=== PATIENT | male | born 1940 | race Caucasian/White ===

== ENCOUNTER → 2018-01-26 06:26 | Outpatient (CLI) | payer MEDICARE, SELFPAY ==
--- NOTE | 2018-01-26 09:09 | STRESSREP ---
Stress Test Report Exercise myocardial perfusion stress test. 77-year-old man with a history of chest pain. On no medications. Stress protocol: Resting EKG demonstrates sinus rhythm with rate of 60 bpm normal intervals and noted resting blood pressure is 110/66 mmHg. Patient exercised according to regular Barry protocol for total duration of 9 minutes. Patient completed stage III of the Barry protocol. The maximum heart rate attained was 123 bpm which was 84% of maximum predicted heart rate the maximum workload attained was 10.1 metabolic equivalents. At rest there were no ST or T-wave changes noted suggest ischemia at peak exercise upsloping ST changes only were noted with no meet the criteria for ischemia. The resting blood pressure was 110/66 mmHg with a peak blood pressure of 140/68 mmHg rate pressure product was 17,200. No chest pain was noted and no arrhythmias were present. Myocardial perfusion protocol: 10.8 mCi of technetium 99m sestamibi was injected at rest. The patient exercised according to regular Barry protocol for 9 minutes attaining 10.1 metabolic equivalents and at peak exercise 33.3 mCi of technetium 99m sestamibi was injected stress images were obtained stress and rest images were reconstructed and compared in the short axis vertical long and horizontal long axis. Gated images were also obtained. Perfusion SPECT analysis: Review of the stress images demonstrate normal uptake of tracer noted in all areas of the myocardium. The resting images similarly demonstrate normal uptake of tracer noted in all areas of the myocardium; no areas of reversibility are noted suggest ischemia and no previous infarct is noted. There is mild GI attenuation artifact noted involving the inferior wall. Gated SPECT analysis: The gated ejection fraction is 81% with no wall motion abnormalities noted. Conclusion: Normal exercise myocardial perfusion stress test at a high workload. Preserved ejection fraction.
== END ==
PROVIDERS: Family Provider Family Medicine; PCP Family Medicine; Visit Provider Family Medicine
DX: R07.89 Other chest pain (principal)
CPT/HCPCS: 78452; 93017; A9500; A4216

== ENCOUNTER → 2018-02-04 06:39 | Outpatient (CLI) | payer MEDICARE, SELFPAY ==
--- NOTE | 2018-02-04 06:41 | CT_ITS ---
STUDY: CT ABDOMEN AND PELVIS WITH CONTRAST REASON FOR EXAM: Male, 77 years old. Recent diagnosis of a colonic tubular adenomatous polyp. RADIATION DOSAGE (If Supplied By Facility): CTDIvol = ( 11.54 ) mGy, DLP = ( 529.98 ) mGycm TECHNIQUE: Transaxial images were obtained from the dome of the diaphragm to the symphysis pubis with oral contrast. 100 ml of Isovue 300 contrast was administered. Sagittal and coronal images were reconstructed. Individualized dose optimization techniques were used for this CT. COMPARISON: None. FINDINGS: The visualized lung bases are unremarkable. The visualized portions of the heart are within normal limits. There are several well-defined small hypodensities scattered throughout the liver suggestive of hepatic cysts. The largest is in the peripheral inferior aspect of the right lobe of liver measuring 2.1 cm x 1.8 cm. There are multiple small gallstones. There are multiple benign calcified granulomata of the spleen. Normal pancreas. Normal bilateral adrenal glands. Normal right kidney. Normal left kidney. Moderate sized hiatal hernia. Normal small intestine. There is a 3.2 cm x 3.9 cm x 9.8 cm lobulated fluid-filled structure in the cecum. This may represent the abnormal finding on colonoscopy. Clinical correlation is recommended. Moderate amount of fecal material is seen throughout the colon. Scattered sigmoid diverticula. The appendix is visualized and appears normal. There is diffuse atherosclerotic calcification of the abdominal aorta and the major visceral branches, without a demonstrated aneurysm. Normal inferior vena cava. Normal retroperitoneum. Normal urinary bladder. There is enlargement of the prostate gland. It measures 4.5 cm x 5.2 centimeters. It is of homogeneous density. This causes indentation of the bladder base. Central prostatic calcifications are seen. There is a right-sided inguinal hernia containing adipose tissue. Normal osseous structures. CT/Abdomen/Pelvis WITH Contrast IMPRESSION: Large fluid-filled structure within the cecum as described. Multiple small hepatic cysts. Electronically Signed: Anatoliy Laureano MD at 10:09 EDT Tel [phone], Service support ,
[2018-02-04 07:01] LABS: CREATININE FINGERSTICK 1.4 mg/dL (0.70-1.30)
== END ==
PROVIDERS: Family Provider Family Medicine; PCP Family Medicine; Visit Provider Family Medicine
DX: D12.6 Benign neoplasm of colon, unspecified (principal); K76.89 Other specified diseases of liver
CPT/HCPCS: 74177; Q9967

== ENCOUNTER → 2018-02-17 08:46 | Outpatient (CLI) | payer MEDICARE, SELFPAY ==
[2018-02-17 09:20] VITALS: BP 115/60; PULSE 63; RESP 14; TEMP 36.4; O2SAT 98; BMI 22.5
[2018-02-17 09:30] LABS: International Normalized Ratio 1.1; Partial Thromboplast Time 38.6 Seconds (24.1-36.2); Prothrombin Time (Protime)PT. 14.5 SECONDS (11.7-14.9)
[2018-02-17 09:31] LABS: Platelet Count 186 K/mm3 (150-450)
== END ==
PROVIDERS: Family Provider Family Medicine; PCP Family Medicine; Visit Provider Internal Medicine Gastroenterology
DX: K63.89 Other specified diseases of intestine (principal)
CPT/HCPCS: 36415; 85049; 85610; 85730; J7040; A4216

== ENCOUNTER → 2018-07-15 09:14 | Outpatient (CLI) | payer MEDICARE, SELFPAY ==
[2018-07-15 10:03] LABS: Hematocrit 39.3 % (40-54); Hemoglobin 13.7 g/dl (13.0-16.5); Mean Corp Hgb Conc 34.9 g/gl (32-36); Mean Corpuscular Hgb 30.2 pg (27.0-32.0); Mean Corpuscular Volume 86.6 fL (80-94); Mean Platelet Vol. 9.2 fl (6.2-12.0); Platelet Count 191 K/mm3 (150-450); RBC Distribution Width CV 13.5 % (11.6-14.6); RBC Distribution Width SD 41.4 fl (35.1-43.9); Red Blood Count 4.54 M/mm3 (4.6-6.2); Scan Indicated on CBC? Y/N NO; White Blood Count 5.7 K/mm3 (4.4-11.0)
[2018-07-15 10:27] LABS: Anion Gap 8 (5-15); BUN 21 mg/dL (7-18); BUN/Creat Ratio 19.8 RATIO (10-20); Calcium,Total 8.7 mg/dL (8.5-10.1); Chloride 106 mmol/L (98-107); Cholesterol 197 mg/dL (200); Creatinine, Serum 1.06 mg/dL (0.70-1.30); EST Glomerular Filtration Rate 72 mL/min (>60); Est Glom Filt Rate - Afr Amer 87 mL/min (>60); Glucose 91 mg/dL (74-106); High Density Lipoprotein 31 mg/dL; PSA,Total - Annual Screen 2.95 ng/mL (0.00-4.00); Potassium 4.1 mmol/L (3.5-5.1); Sodium Level 140 mmol/L (136-145); Triglycerides 182 mg/dL; Very Low Density Lipoprotein 36 mg/dL (5-40)
== END ==
PROVIDERS: Family Provider Family Medicine; PCP Family Medicine; Referring Provider Family Medicine; Visit Provider Family Medicine
DX: E78.00 Pure hypercholesterolemia, unspecified (principal); D64.9 Anemia, unspecified; Z12.5 Encounter for screening for malignant neoplasm of prostate
CPT/HCPCS: 36415; 80048; 80061; 84153; 85027; G0103

== ENCOUNTER → 2020-03-07 09:46 | Outpatient (CLI) | payer MEDICARE, SELFPAY ==
[2018-09-10 08:43] VITALS: BMI 22.5
--- NOTE | 2020-03-07 09:51 | RAD_ITS ---
STUDY: X-RAY CHEST REASON FOR EXAM: Male, 79 years old. Chest pain/pressure TECHNIQUE: 2 PA and lateral views of the chest. COMPARISON: None. FINDINGS: The lungs are clear and expanded. There is no demonstrated pleural abnormality. Normal size heart. Normal mediastinum and kelli. Normal visualized pulmonary arteries. Normal visualized aortic arch and descending thoracic aorta. There are diffuse degenerative changes of the visualized thoracic spine. Normal visualized ribs, clavicles, and shoulders. There is no demonstrated abnormality of the visualized soft tissue structures of the upper abdomen. RAD/Chest PA and Lateral IMPRESSION: No acute pulmonary process Electronically Signed: David Garcia MD at 11:46 EDT , Service support ,
== END ==
PROVIDERS: PCP Internal Medicine; Referring Provider Internal Medicine; Visit Provider Internal Medicine
DX: R07.9 Chest pain, unspecified (principal)
CPT/HCPCS: 71046

== ENCOUNTER → 2020-08-08 08:35 | Outpatient (CLI) | payer MEDICARE, SELFPAY ==
[2018-09-10 08:43] VITALS: BMI 22.5
--- NOTE | 2020-08-08 08:54 | US_ITS ---
STUDY: Soft tissue neck ULTRASOUND REASON FOR EXAM: Male, 79 years old. RIGHT NECK LUMP ENLARGED LYMPH NODE TECHNIQUE: Ultrasound evaluation of the soft tissue neck was performed with real-time and static oejda-scale imaging. COMPARISON: None. FINDINGS: Multiple longitudinal and transverse ultrasound images of the neck demonstrates some small normal-sized lymph nodes. US/Head/Neck Soft Tissue IMPRESSION: Normal ultrasound examination of the neck. Electronically Signed: Cyrus Dinh MD at 8:25 EDT Tel , Service support ,
== END ==
PROVIDERS: PCP Internal Medicine; Referring Provider Internal Medicine; Visit Provider Internal Medicine
DX: R22.1 Localized swelling, mass and lump, neck (principal)
CPT/HCPCS: 76536

== ENCOUNTER → 2020-11-07 13:40 | Outpatient (CLI) | payer MEDICARE, SELFPAY ==
[2018-09-10 08:43] VITALS: BMI 22.5
--- NOTE | 2020-11-07 13:46 | CT_ITS ---
STUDY: CT BRAIN WITH AND WITHOUT CONTRAST REASON FOR EXAM: Male, 80 years old. HEADACHE RADIATION DOSAGE (If Supplied By Facility): CTDIvol = ( 60.81 ) mGy, DLP = ( 2035.57 ) mGycm TECHNIQUE: Transaxial CT imaging of the brain was performed pre and post contrast administration. The examination was performed with intravenous administration of IV 50mL Isovue-370. Individualized dose optimization techniques were used for this CT. COMPARISON: Comparison is made with prior study 06/04/2016. FINDINGS: Normal soft tissue structures. Normal calvarium. There is mild cerebral atrophy with widening of the extra-axial spaces and ventricular dilatation. There are areas of decreased attenuation within the white matter tracts of the supratentorial brain, consistent with microvascular disease changes. There are small punctate calcifications of the basal ganglia which are seen in the aging brain as a normal variant. Normal brainstem. Normal cerebellum. There is no intracranial hemorrhage. There are no findings of an acute ischemic infarction. Atherosclerotic calcification of the cavernous portions of the internal carotid arteries bilaterally. Normal visualized paranasal sinuses. CT/Brain/Head W/WO Contrast IMPRESSION: Chronic involutional changes of the brain. Electronically Signed: Anatoliy Laureano MD at 14:47 EST , Service support ,
[2020-11-07 14:11] LABS: CREATININE FINGERSTICK 1.2 mg/dL (0.70-1.30)
== END ==
LOC: CT 13:45
PROVIDERS: PCP Internal Medicine; Referring Provider Internal Medicine; Visit Provider Internal Medicine
DX: R51.9 Headache, unspecified (principal); J32.9 Chronic sinusitis, unspecified
CPT/HCPCS: 70470; Q9967

== ENCOUNTER → 2021-08-05 12:45 | Outpatient (CLI) | payer MEDICARE, SELFPAY ==
--- NOTE | 2021-08-05 12:48 | CDU_ITS ---
Reason For Study: CAROTID STENOSIS Rt. Velocities/BP Lt. Velocities/BP Prox CCA 77.3/21.3 cm/sec. Prox CCA 127.1/30.3 cm/sec. Mid CCA 103.4/22.6 cm/sec. Mid CCA 108.9/28.5 cm/sec. Dist CCA 147.2/26.7 cm/sec. Dist CCA 97.9/26.7 cm/sec. Prox ICA 97.3/17.7 cm/sec. Prox ICA 81.5/23.0 cm/sec. Mid ICA 71.2/23.0 cm/sec. Mid ICA 70.5/21.2 cm/sec. Dist ICA 62.1/23.0 cm/sec. Dist ICA 68.7/23.0 cm/sec. Rt. ICA/CCA = .68. Lt. ICA/CCA = .7. Prox ECA 104.7/13.4 cm/sec. Prox ECA 97.9/19.4 cm/sec. Rt. Vert. 41.2/11.2 cm/sec. Lt. Vert. 35.8/12.1 cm/sec. Right Extracranial There is homogeneous, smooth atherosclerotic plaque noted in the right common carotid artery. The atherosclerotic plaque causes acoustic shadowing. There is heterogeneous, irregular atherosclerotic plaque noted in the right internal carotid artery. There is homogeneous, smooth atherosclerotic plaque noted in the right external carotid artery. Antegrade flow is noted in the right vertebral artery. There is heterogeneous, irregular atherosclerotic plaque noted in the right bulb. Left Extracranial There is homogeneous, smooth atherosclerotic plaque noted in the left common carotid artery. There is heterogeneous, irregular atherosclerotic plaque noted in the left internal carotid artery. There is no significant atherosclerotic plaque noted in the left external carotid artery. Antegrade flow is noted in the left vertebral artery. There is heterogeneous, irregular atherosclerotic plaque noted in the left bulb. Procedure Carotid Duplex 18083. Exam performed in department. VL/Carotid Duplex Ultrasound Interpretation Summary Mild (<50%) stenosis right extracranial internal carotid. Mild (<50%) stenosis left extracranial internal carotid. Flow within the vertebral arteries is antegrade bilaterally. Heterogeneous, irregular, atherosclerotic plaque is noted in the carotid bulbs bilaterally, wh ich does not appear to be hemodynamically significant. However, they are calcified, cause acoustic shadowing, and appear to occupy significant luminal volume. Serial monitoring and clinical correlatio n are advised. Ordering Physician: Yahaira Nicholas Referring Physician: Yahaira Nicholas Performed By: Jeanie Sinclair, YECENIA, RVT
== END ==
PROVIDERS: PCP Internal Medicine; Referring Provider Internal Medicine; Visit Provider Internal Medicine
DX: I65.23 Occlusion and stenosis of bilateral carotid arteries (principal)
CPT/HCPCS: 93880

== ENCOUNTER → 2022-12-15 | Outpatient (CLI) | payer MEDICARE, SELFPAY ==
--- NOTE | 2022-12-15 08:52 | STRESSREP_ITS ---
Stress Test Report Date: 12-15-2022 Procedure: Exercise tolerance test/imaging study Indications: Chest pain, cardiac conduction system disorder, peripheral arterial occlusive disease Consent: Per the patient Procedure: The patient exercised on a Barry protocol for 8 minutes completing Stage II and 2 minutes of Stage III achieving a peak heart rate of 125 bpm (89% predicted maximal heart rate) with resting blood pressure of 92/60 mmHg and a peak blood pressure 140/66 mmHg and a peak MET capacity of 10 METs. The baseline ECG demonstrated sinus bradycardia; first-degree AV block. The peak exercise ECG demonstrated significant somatic/motion artifact with no obvious ECG changes. There were no cardiac dysrhythmias pretest, during exercise, or recovery. The functional capacity was considered good. There was no complaint of chest discomfort during exercise or recovery. The examination was discontinued secondary to dyspnea and leg fatigue. Impression: 1. Technically adequate (percent predicted maximal heart rate greater than 85%) exercise tolerance test 2. Peak exercise ECG with significant somatic/motion artifact with no obvious ECG changes 3. There were no cardiac dysrhythmias pretest, during exercise, or recovery 4. Nuclear images pending Myocardial perfusion imaging study: Technique: The patient was injected with 10.1 mCi of technetium 99m Cardiolite and subsequently rest SPECT Cardiolite nuclear imaging was obtained in the horizontal long, vertical long, and short axis views. The patient exercised on a Barry protocol for 8 minutes completing Stage II and 2 minutes of Stage III achieving a peak heart rate of 125 bpm (89% predicted maximal heart rate) with resting blood pressure of 92/60 mmHg and a peak blood pressure 140/66 mmHg and a peak MET capacity of 10 METs. The patient was injected with 34.0 mCi of technetium 99m Cardiolite and subsequently stress SPECT Cardiolite nuclear imaging was obtained in the horizontal long, vertical long, and short axis views. A gated Cardiolite study at peak stress was obtained. Interpretation: Rest and stress SPECT Cardiolite nuclear imaging status post realignment, norm alization, and attenuation correction, demonstrates relative uniform tracer uptake and myocardial perfusion appearing within normal limits. There is end systolic thickening and brightening. The gated Cardiolite study demonstrates myocardial thickening and inward wall motion. The reported LVEF is 79%. Impression: 1. Rest and stress SPECT Cardiolite nuclear imaging demonstrate relative uniform tracer uptake and myocardial perfusion appearing within normal limits. 2. The gated Cardiolite study reports an LVEF of 79%. This note was generated with Swidj[employer] software. It may contain incorrect words, spelling, and punctuation that were not noted in checking the note before signing.
== END | disposition home or self-care (01) ==
PROVIDERS: PCP Internal Medicine; Referring Provider Internal Medicine; Visit Provider Internal Medicine
DX: R07.89 Other chest pain (principal)
CPT/HCPCS: 78452; 93017; A9500

== ENCOUNTER → 2022-12-17 | Outpatient (CLI) | payer MEDICARE, SELFPAY ==
--- NOTE | 2022-12-17 13:12 | CT_ITS ---
INDICATION: HIGH CHOL. EXAMINATION: CT CHEST WITHOUT CONTRAST - CT Chest W/O Contrast Injection. Cardiac over read examination. TECHNIQUE: Helically acquired images were obtained of the chest. A radiation dose optimization technique was used for this scan. IV Contrast dosage and agent: None. COMPARISON: None. FINDINGS: LUNGS, PLEURA AND LARGE AIRWAYS: Calcified granulomas in the posterior aspect of the left upper lobe. No pleural effusion or thickening. No pneumothorax. THYROID: No thyroid lesions. HEART AND PERICARDIUM: Heart size is normal. No pericardial effusion. CORONARY ARTERIES: Coronary artery calcification is seen. VESSELS: Thoracic aorta is not dilated. MEDIASTINUM AND ISAIAS: Calcified left hilar lymph nodes. Esophagus is unremarkable. No hiatal hernia. UPPER ABDOMEN: Moderate sized hiatal hernia. There is a 1.7 cm x 1.4 cm cyst in the upper medial aspect of the right lobe of the liver. BONES: Disc space narrowing and spondylosis in the thoracic spine. CT/Limited Chest CT Cardiac Only IMPRESSION: Calcified granulomas in the posterior aspect of the left upper lobe with calcified left hilar lymph nodes. Small cyst in the upper medial aspect of the right lobe of the liver. Electronically Signed: Anatoliy Laureano MD at 15:38 EST ,
[2022-12-17 13:27] VITALS: BP 128/68; PULSE 45; RESP 16; TEMP 36.2; O2SAT 100; BMI 22.8
--- NOTE | 2022-12-21 07:58 | CA.SCORE ---
Calcium Scoring Coronary Calcium Scoring: High-resolution Computed Tomographic imaging of the chest was performed on [12/17/22 ], with particular attention paid to the coronary arteries. Images from the examination were analyzed for the presence and extent of coronary artery calcification , using coronary calcium quantification software. The patient tolerated the procedure well and there were no complications. The results of the coronary calcification analysis are provided below. Findings Coronary Artery Left Main (LM): 10 Left Anterior Descending (LAD): 23 Left Circumflex (LCX): 0 Right Coronary Artery (RCA): 0 Total Agatston Score: 33 Percentile Ranking: less than 10% Calcium Scoring Interpretation: Different methods to categorize the overall amount of coronary plaque. Overall amount CAC SIS Visual of coronary plaque P1 Mild -100 <2 1-2 vessels with mild amount of plaque P2 Moderate 101-300 3-4 1-2 vessels with moderate amount, 3 vessels with mild amount of plaque P3 Severe 301-999 5-7 3 vessels with moderate amount, 1 vessel with severe amount of plaque P4 Extensive >1000 >8 2-3 vessels with severe amount of plaque Calcium Score: Mild: 1-2 vessels w/mild amount of plaque
== END | disposition home or self-care (01) ==
PROVIDERS: PCP Internal Medicine; Referring Provider Internal Medicine; Visit Provider Internal Medicine
DX: R07.9 Chest pain, unspecified (principal); E78.00 Pure hypercholesterolemia, unspecified
CPT/HCPCS: 75571; 76380

== ENCOUNTER → 2023-07-12 | Outpatient (CLI) | payer MEDICARE, SELFPAY ==
--- NOTE | 2023-07-12 07:50 | CDU_ITS ---
Reason For Study: carotid stenosis Rt. Velocities/BP Lt. Velocities/BP Prox CCA 103.5/27.4 cm/sec. Prox CCA 98.6/24.9 cm/sec. Mid CCA 115.8/33.5 cm/sec. Mid CCA 120.7/27.4 cm/sec. Dist CCA 85.1/18.8 cm/sec. Dist CCA 81.4/22.5 cm/sec. Prox ICA 83.9/17.6 cm/sec. Prox ICA 63.0/18.8 cm/sec. Mid ICA 59.3/13.9 cm/sec. Mid ICA 69.1/21.2 cm/sec. Dist ICA 85.1/27.4 cm/sec. Dist ICA 64.2/20.0 cm/sec. Rt. ICA/CCA = .7. Lt. ICA/CCA = .6. Prox ECA 74.0/10.2 cm/sec. Prox ECA 77.7/12.6 cm/sec. Rt. Vert. 49.5/13.9 cm/sec. Lt. Vert. 48.3/10.2 cm/sec. Right Extracranial There is intimal thickening but no significant atherosclerotic plaque noted in the right common carotid artery. There is heterogeneous, irregular atherosclerotic plaque noted in the right internal carotid artery. There is intimal thickening but no significant atherosclerotic plaque noted in the right external carotid artery. Antegrade flow is noted in the right vertebral artery. Left Extracranial There is intimal thickening but no significant atherosclerotic plaque noted in the left common carotid artery. There is heterogeneous, irregular atherosclerotic plaque noted in the left internal carotid artery. There is intimal thickening but no significant atherosclerotic plaque noted in the left external carotid artery. Antegrade flow is noted in the left vertebral artery. Procedure Carotid Duplex 31729. This is a Carotid Duplex examination using B-mode, color flow and specral Doppler. The exam was diagnostic. Exam performed in department. VL/Carotid Duplex Ultrasound Interpretation Summary Mild (<50%) stenosis right extracranial internal carotid. Mild (<50%) stenosis left extracranial internal carotid. Patent and antegrade vertebrals bilaterally. Ordering Physician: Yahaira Nicholas Performed By: Oscar Hardin RVT
== END | disposition home or self-care (01) ==
LOC: CVS 07:49
PROVIDERS: PCP Internal Medicine; Referring Provider Internal Medicine; Visit Provider Internal Medicine
DX: I65.23 Occlusion and stenosis of bilateral carotid arteries (principal)
CPT/HCPCS: 93880

== ENCOUNTER 2024-10-02 10:10 | Day surgery (SDC) | payer MEDICARE, SELFPAY ==
--- NOTE | 2024-09-26 09:40 | PAT.ANE_ITS ---
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 When Was Last Pacemaker Check QUESTION #4 FULL TEXT: You/Your Family Experience fever (hyperthermia) with Anesthesia Last Oral Intake Last Oral intake: Last Oral Intake NPO since Meds taken in AM with sips of water? Meds patient instructed to take am of surgery PONV PONV - senior informatica developer: PONV - senior informatica developer Female No 09/25/24 15:37 HX of Motion Sickness No 09/25/24 15:37 HX of N/V After Surgery No 09/25/24 15:37 Non-Smoker Yes 09/25/24 15:37 Duration of Surgery greater Yes 09/25/24 15:37 than 60 minutes Number of Risk Factors 2 09/25/24 15:37 PONV Score Moderate Risk 09/25/24 15:37 Height & Weight Height & Weight: Anesthesia: Height & Weight Height 5 ft 7.5 in 12/17/22 13:27 Respiratory Assessment Respiratory Assessment - senior informatica developer: Respiratory Tract Infection Hx - senior informatica developer Hx Respiratory Tract Infection No 09/25/24 15:37 STOP Sleep Apnea STOP Sleep Apnea - senior informatica developer: STOP Sleep Apnea - senior informatica developer Hx Hypertension No 09/25/24 15:37 Hx Sleep Apnea No 09/25/24 15:37 CPAP BIPAP Do you snore loudly (louder No 09/25/24 15:37 than talking or can be heard Do you often feel tired/ No 09/25/24 15:37 fatigued/ sleepy during daytime? Has anyone observed you stop No 09/25/24 15:37 breathing during sleep? STOP Results Negative 09/25/24 15:37 QUESTION #5 FULL TEXT : Do you snore loudly (louder than talking or can be heard through closed doors)? 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 Specify any problems Hx of Preganancy in last 3 N/A 09/25/24 15:37 Months Nurse Filling Out Transfusion [id number] 09/25/24 15:37 & Questions: Date: 09/25/24 09/25/24 15:37 Time: 15:43 09/25/24 15:37 Patient unable to answer at this time (ie. confused, unrespo /Reproduction History /Reproductive History - senior informatica developer: /Reproductive Hx- senior informatica developer Hx Now Gestational Age (in weeks): EDC: Hx Hx Para Hx Section SAB PFSH Medical History (Updated 09/25/24 @ 15:47 by Dayton Rubin) Wears hearing aid Wears glasses Cancer Thyroid disease High cholesterol History of stress test Encounter for colonoscopy following colon polyp removal Anemia Hay fever Home Medications ?Medication ?Instructions ?Recorded ?Last Taken ?Type ascorbic acid (vitamin C) 1,000 mg 1,000 mg PO DAILY 09/25/24 Unknown History tablet,extended release (C Complex) cholecalciferol (vitamin D3) 25 25 mcg PO DAILY 09/25/24 Unknown History mcg (1,000 unit) capsule (Vitamin D3) finasteride 5 mg tablet 5 mg PO DAILY 09/25/24 Unknown History levothyroxine 50 mcg tablet 50 mcg PO DAILY 09/25/24 Unknown History pravastatin 80 mg tablet 80 mg PO DAILY 09/25/24 Unknown History vitamin B complex (Complex B-100 1 tab PO DAILY 09/25/24 Unknown History tablet,extended release) Allergy/AdvReac Type Severity Reaction Status Date / Time No Known Allergies Allergy Verified 09/25/24 15:34 Surgical History History of hernia surgery H/O removal of cyst Social History (Updated 09/10/18 @ 09:44 by Judith ZAZUETA, PA) Smoking Status: Never smoker alcohol intake: current alcohol intake frequency: 0-2 drinks per day Alcohol type: wine Audit: Pertinent Findings Pertinent Findings Stress test pertinent findings: 12/15/2022. EF = 79%. 10 METS. No ischemia. No infarct Additional pertinent findings: 12/17/2022. Coronary Calcium Score is 34 which is below the 25% for risk
--- NOTE | 2024-09-26 10:31 | PAT.ANE_ITS ---
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 When Was Last Pacemaker Check QUESTION #4 FULL TEXT: You/Your Family Experience fever (hyperthermia) with Anesthesia Last Oral Intake Last Oral intake: Last Oral Intake NPO since Meds taken in AM with sips of water? Meds patient instructed to take am of surgery PONV PONV - teletype telegrapher: PONV - teletype telegrapher Female No 09/25/24 15:37 HX of Motion Sickness No 09/25/24 15:37 HX of N/V After Surgery No 09/25/24 15:37 Non-Smoker Yes 09/25/24 15:37 Duration of Surgery greater Yes 09/25/24 15:37 than 60 minutes Number of Risk Factors 2 09/25/24 15:37 PONV Score Moderate Risk 09/25/24 15:37 Height & Weight Height & Weight: Anesthesia: Height & Weight Height 5 ft 7.5 in 12/17/22 13:27 Respiratory Assessment Respiratory Assessment - teletype telegrapher: Respiratory Tract Infection Hx - teletype telegrapher Hx Respiratory Tract Infection No 09/25/24 15:37 STOP Sleep Apnea STOP Sleep Apnea - teletype telegrapher: STOP Sleep Apnea - teletype telegrapher Hx Hypertension No 09/25/24 15:37 Hx Sleep Apnea No 09/25/24 15:37 CPAP BIPAP Do you snore loudly (louder No 09/25/24 15:37 than talking or can be heard Do you often feel tired/ No 09/25/24 15:37 fatigued/ sleepy during daytime? Has anyone observed you stop No 09/25/24 15:37 breathing during sleep? STOP Results Negative 09/25/24 15:37 QUESTION #5 FULL TEXT : Do you snore loudly (louder than talking or can be heard through closed doors)? Tobacco Use History Tobacco Use History - teletype telegrapher: Tobacco Use History - teletype telegrapher Tobacco Use Smoking Status Never smoker 09/25/24 15:37 Hx Tobacco Use No 09/25/24 15:37 Years Smoking Packs Smoked per Day Smoking Cessation Date was within the last 15 years Hx Smoking Cessation Date Hx Smoking Cessation Counseling Hematologic Medial History Hematologic Hx - teletype telegrapher: Hematologic Medical Hx - public relations counselor Hx of Blood Transfusion No 09/25/24 15:37 Hx of Transfusion in last 3 No 09/25/24 15:37 Months Date of Last Transfusion (if within last 3 months) Ever experience any problems No 09/25/24 15:37 with transfusion(s)? Specify any problems Hx of Preganancy in last 3 N/A 09/25/24 15:37 Months Nurse Filling Out Transfusion [email or web address] 09/25/24 15:37 & Questions: Date: 09/25/24 09/25/24 15:37 Time: 15:43 09/25/24 15:37 Patient unable to answer at this time (ie. confused, unrespo /Reproduction History /Reproductive History - teletype telegrapher: /Reproductive Hx- teletype telegrapher Hx Now Gestational Age (in weeks): EDC: Hx Hx Para Hx Section SAB PFSH Medical History (Updated 09/25/24 @ 15:47 by Dayton Rubin) Wears hearing aid Wears glasses Cancer Thyroid disease High cholesterol History of stress test Encounter for colonoscopy following colon polyp removal Anemia Hay fever Home Medications ?Medication ?Instructions ?Recorded ?Last Taken ?Type ascorbic acid (vitamin C) 1,000 mg 1,000 mg PO DAILY 09/25/24 Unknown History tablet,extended release (C Complex) cholecalciferol (vitamin D3) 25 25 mcg PO DAILY 09/25/24 Unknown History mcg (1,000 unit) capsule (Vitamin D3) finasteride 5 mg tablet 5 mg PO DAILY 09/25/24 Unknown History levothyroxine 50 mcg tablet 50 mcg PO DAILY 09/25/24 Unknown History pravastatin 80 mg tablet 80 mg PO DAILY 09/25/24 Unknown History vitamin B complex (Complex B-100 1 tab PO DAILY 09/25/24 Unknown History tablet,extended release) Allergy/AdvReac Type Severity Reaction Status Date / Time No Known Allergies Allergy Verified 09/25/24 15:34 Surgical History History of hernia surgery H/O removal of cyst Social History (Updated 09/10/18 @ 09:44 by Judith ZAZUETA, PA) Smoking Status: Never smoker alcohol intake: current alcohol intake frequency: 0-2 drinks per day Alcohol type: wine Audit: Pertinent Findings Pertinent Findings EKG Perinent findings: July 10, 2024. Sinus bradycardia with first-degree AV block. Echo (EF%) pertinent findings: 12/15/2022. EF = 79%. 10 METS. No ischemia. No infarct Additional pertinent findings: 12/17/2022. Coronary Calcium Score is 34 which is below the 25% for risk. Creatinine is 1.2. Potassium is 4.9. Hemoglobin is 13.9. Platelets is 176. Recommendation Anesthesia Recommendation Anesthesia recommentdation: OPTIMIZED for anesthesia
[2024-10-02] VITALS (9 sets, daily range): BP systolic 111–128; BP diastolic 56–63; PULSE 60–83; RESP 16–18; TEMP 36.3–36.6; O2SAT 96–99; BMI 22.8
[2024-10-02] MEDS: 0.9% Normal Saline (1000mL) 1,000 ML 15 ML IV (10:52)
--- NOTE | 2024-10-02 11:10 | PCM.PRE.AN2 ---
ASA Classification* ASA Classification ASA Classification: 2 Assessment & Plan Anesthesia* Anesthesia Assessment Anesthesia Assessment: Discussed sedation and/or anesthesia options, risks, benefits, and alternatives with patient/parents/legal guardian/POA. Questions invited. The patient/parents/legal guardian/POA seems to understand and agrees to proceed with anesthesia plan. Reviewed the physical assessment, medical history, allergy history and patient home medications list prior to surgery/procedure/anesthetic and documented any changes. Performed airway and anesthesia risk assessments. Anesthesia Type Anesthesia Type: General Anesthesia Focused Assessment* Temperature: 97.7 F Pulse Rate: 60 Blood Pressure: 117/62 Respiratory Rate: 18 Pulse Ox: 99 Airway Assessment Mouth opens: >3 cm Mallampati Score: II Focused Labs Anesthesia Preop lab: CBC WBC 5.7 K/mm3 (4.4-11.0) 07/15/18 09:18 RBC 4.54 M/mm3 (4.6-6.2) L 07/15/18 09:18 Hgb 13.7 g/dl (13.0-16.5) 07/15/18 09:18 Hct 39.3 % (40-54) L 07/15/18 09:18 Plt Count 191 K/mm3 (150-450) 07/15/18 09:18 CHEMISTRY Potassium 4.1 mmol/L (3.5-5.1) 07/15/18 09:18 Sodium 140 mmol/L (136-145) 07/15/18 09:18 BUN 21 mg/dL (7-18) H 07/15/18 09:18 Creatinine 1.06 mg/dL (0.70-1.30) 07/15/18 09:18 Glucose 91 mg/dL (74-106) 07/15/18 09:18 COAG PT 14.5 SECONDS (11.7-14.9) 02/17/18 08:53 Pre-Assessment Diagnosis/Proposed Procedure Planned Operative Procedure(s): 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 When Was Last Pacemaker Check QUESTION #4 FULL TEXT: You/Your Family Experience fever (hyperthermia) with Anesthesia Last Oral Intake Last Oral intake: Last Oral Intake NPO since 19:30 10/02/24 10:43 Meds taken in AM with sips of Yes 10/02/24 10:43 water? Meds patient instructed to take am of surgery PONV PONV - court liaison: PONV - court liaison Female No 09/25/24 15:37 HX of Motion Sickness No 09/25/24 15:37 HX of N/V After Surgery No 09/25/24 15:37 Non-Smoker Yes 09/25/24 15:37 Duration of Surgery greater Yes 09/25/24 15:37 than 60 minutes Number of Risk Factors 2 09/25/24 15:37 PONV Score Moderate Risk 09/25/24 15:37 Height & Weight Height & Weight: Anesthesia: Height & Weight Height 5 ft 7.5 in 10/02/24 10:43 Weight: 67 kg 10/02/24 10:43 Body Mass Index (BMI) 22.8 10/02/24 10:43 Respiratory Assessment Respiratory Assessment - court liaison: Respiratory Tract Infection Hx - court liaison Hx Respiratory Tract Infection No 09/25/24 15:37 STOP Sleep Apnea STOP Sleep Apnea - court liaison: STOP Sleep Apnea - court liaison Hx Hypertension No 09/25/24 15:37 Hx Sleep Apnea No 09/25/24 15:37 CPAP BIPAP Do you snore loudly (louder No 09/25/24 15:37 than talking or can be heard Do you often feel tired/ No 09/25/24 15:37 fatigued/ sleepy during daytime? Has anyone observed you stop No 09/25/24 15:37 breathing during sleep? STOP Results Negative 09/25/24 15:37 QUESTION #5 FULL TEXT : Do you snore loudly (louder than talking or can be heard through closed doors)? Tobacco Use History Tobacco Use History - court liaison: Tobacco Use History - court liaison Tobacco Use Smoking Status Never smoker 09/25/24 15:37 Hx Tobacco Use No 09/25/24 15:37 Years Smoking Packs Smoked per Day Smoking Cessation Date was within the last 15 years Hx Smoking Cessation Date Hx Smoking Cessation Counseling Hematologic Medial History Hematologic Hx - court liaison: Hematologic Medical Hx - documentation improvement specialist Hx of Blood Transfusion No 09/25/24 15:37 Hx of Transfusion in last 3 No 09/25/24 15:37 Months Date of Last Transfusion (if within last 3 months) Ever experience any problems No 09/25/24 15:37 with transfusion(s)? Specify any problems Hx of Preganancy in last 3 N/A 09/25/24 15:37 Months Nurse Filling Out Transfusion [email or web address] 09/25/24 15:37 & Questions: Date: 09/25/24 09/25/24 15:37 Time: 15:43 09/25/24 15:37 Patient unable to answer at this time (ie. confused, unrespo /Reproduction History /Reproductive History - court liaison: /Reproductive Hx- court liaison Hx Now Gestational Age (in weeks): EDC: Hx Hx Para Hx Section SAB Active Medications Active Medications: Current Medications Generic Name Dose Route Start Last Admin Trade Name Freq PRN Reason Stop Dose Admin Sodium Chloride 1,000 mls @ 15 mls/hr 10/02/24 10:30 10/02/24 10:52 IV 10/05/24 05:09 15 mls/hr .Q48H JUANA Administration Protocol [facility] Medical History Wears hearing aid Wears glasses Cancer Thyroid disease High cholesterol History of stress test Encounter for colonoscopy following colon polyp removal Anemia Hay fever Home Medications ?Medication ?Instructions ?Recorded ?Last Taken ?Type ascorbic acid (vitamin C) 1,000 mg 1,000 mg PO DAILY 09/25/24 10/01/24 History tablet,extended release (C Complex) cholecalciferol (vitamin D3) 25 25 mcg PO DAILY 09/25/24 10/01/24 History mcg (1,000 unit) capsule (Vitamin D3) finasteride 5 mg tablet 5 mg PO DAILY 09/25/24 10/02/24 History levothyroxine 50 mcg tablet 50 mcg PO DAILY 09/25/24 10/02/24 History pravastatin 80 mg tablet 80 mg PO DAILY 09/25/24 10/02/24 History vitamin B complex (Complex B-100 1 tab PO DAILY 09/25/24 10/01/24 History tablet,extended release) Allergy/AdvReac Type Severity Reaction Status Date / Time No Known Allergies Allergy Verified 10/02/24 10:36 Surgical History History of hernia surgery H/O removal of cyst Social History Smoking Status: Never smoker alcohol intake: current alcohol intake frequency: 0-2 drinks per day Alcohol type: wine Review of Systems (Anesthesia) ROS Narrative System reviewed and no additional complaints, except as documented.
--- NOTE | 2024-10-02 12:04 | DS.PCM_ITS ---
Providers Primary Care Physician: Dr. 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 Medications at Discharge Home Medications ascorbic acid (vitamin C) 1,000 mg tablet,extended release (C Complex) 1,000 mg PO DAILY 09/25/24 cholecalciferol (vitamin D3) 25 mcg (1,000 unit) capsule (Vitamin D3) 25 mcg PO DAILY 09/25/24 finasteride 5 mg tablet 5 mg PO DAILY 09/25/24 levothyroxine 50 mcg tablet 50 mcg PO DAILY 09/25/24 pravastatin 80 mg tablet 80 mg PO DAILY 09/25/24 vitamin B complex (Complex B-100 tablet,extended release) 1 tab PO DAILY 09/25/24 Weight / BMI Weight Weight: 67 kg Body Mass Index (BMI) 22.8 D/C Instructions Discharge Diet: No restrictions Additional Activity Instructions: No exercise for 2 weeks DC O2, CPAP, BIPAP Needs Additional Home O2 Discharge instructions: No DC home with Oxygen: No Additional Instructions: Remove and discard the cup dressing on the ear tomorrow morning. Leave the white sponge with the blue X in place. Apply 5 drops to the blue X twice a day. Leave the clear tape on the leg for as long as possible. Remove the KATHERINE bandage to shower and then re apply after the shower. Please Follow Up With: Harjit Rolon MD When: End of next week Meaningful Use Info Meaningful Use Meaningful Use Diagnoses (Choose all that apply): None applicable Ischemic Stroke Statin Dosing Therapy Reference: STATIN DOSE THERAPY REFERENCE: * Patients > 75 years receive moderate or high dose statin therapy. * Patients 75 years or YOUNGER should receive HIGH intensity statin dose unless contraindicated. You will be required to document reason for non-treatment if statin daily dose does not meet guidelines. HIGH DOSE STATIN THERAPY DAILY Atorvastatin > than or = to 40 mg Rosuvastatin > than or = to 20 mg Amlodipine + Atorvastatin > than or = to 2.5/40 mg Ezetimibe + Simvastatin 10/80 mg Simvastatin 80mg Discharge Plan Admission Attending Provider: Harjit Rolon Primary Care Provider: Yahaira Nicholas Instructions Print Language: Nic[place] Discharge Orders/Prescriptions Prescriptions: No Action pravastatin 80 mg tablet 80 mg PO DAILY levothyroxine 50 mcg tablet 50 mcg PO DAILY finasteride 5 mg tablet 5 mg PO DAILY Complex B-100 Tablet Extended Release 1 tab PO DAILY C Complex 1,000 mg tablet extended release 1,000 mg PO DAILY cholecalciferol (vitamin D3) [Vitamin D3] 25 mcg (1,000 unit) capsule 25 mcg PO DAILY Referrals / Follow Up: Yahaira Nicholas MD [Primary Care Provider] - Disposition Disposition (needs filled in before D/C Order can be placed): Home, Self Care
--- NOTE | 2024-10-02 12:08 | PCM.OPRPT ---
Operative Report (Standard) Operative Information Date of Procedure: 10/02/24 Pre-Operative Diagnosis: basal cell carcinoma left ear canal Post-Operative Diagnosis: same Surgery/Procedure Performed: Excision left ear canal basal cell carcinoma Split thickness skin graft from the leg to the ear credentials specialist: No Type of Anesthesia: General RN Documented Start/Stop Times: Operation Date: 10/02/24 11:20 Case Time Into Pre-Op 10/02/24 10:25 Anesthesia Start 10/02/24 12:15 Into Room 10/02/24 12:15 Procedure Start 10/02/24 12:41 Procedure End 10/02/24 15:47 Procedure Start Time: : Procedure Stop Time: 15:47 Select all DRAINS/GRAFTS/IMPLANTS that apply: None Estimated Blood Loss: minimal Specimen collected: Yes Description of specimen(s) removed: basal cell carcinoma Description of surgery: The patient was taken the operating room on 10/02/2024. He was placed in the supine position on the operating room table. He was given sufficient general endotracheal anesthesia. The table was turned 90 degrees in a clockwise fashion. The left ear and left thigh were prepped and draped sterilely. 1% lidocaine with epinephrine was injected into the left external auditory canal. After sufficient vasoconstriction, I used a round [place] blade, and straight [place] blade as well as a 15 blade to circumferentially make an incision around the carcinoma. Dissection was carried down sharply to the cartilage. I kept the cartilage with the Specimen in the Area of the Carcinoma. Eventually the carcinoma was excised. The specimen was marked with suture. I then sent additional lateral, anterior, posterior, superior and deep margins for frozen section. The dissection was quite deep. I was on the tragal pointer and looking at SMAS fascia. Given the depth of the invasion, I was concerned about facial nerve injury. I had to send additional superior and posterior margins. My last posterior margin was positive. Hemostasis was achieved with bipolar cautery. Given the severity of the disease I elected to graft the wound and plan for radiation therapy postoperatively. I irrigated the wound with saline. Hemostasis was achieved with bipolar cautery. Next, I injected 1% lidocaine with epinephrine into the skin overlying the intended skin graft. A Elliot dermatome was used to harvest a 2x2 inch piece of split-thickness skin graft from the left thigh. This was then treated with topical 1% lidocaine with epinephrine topically. A Tegaderm and Sancho bandage were eventually applied. I hand piecrusted of the split-thickness skin graft with a 15 blade. This split-thickness skin graft was then placed into the ear defect. This was sewn circumferentially with 6-0 fast-absorbing gut. I placed a Ld pack into the external auditory canal. I inflated this with cipro drops. I then placed Xeroflo onto the graft. I sewed a dental roll through and through the chondral cartilage to keep Xeroflo onto the graft. A Ines dressing was then applied. The patient was then awoken and brought to the recovery room in stable condition. Blood loss minimal, replacement none. Sponge, needle, and instrument count were correct at the end of the procedure. Surgical Findings: very large basal cell carcinoma in the conchal bowl, ear canal and tragus. Complications Complications: No
--- NOTE | 2024-10-02 12:30 | LES_PTH ---
PATIENT: LEE GONSALEZ LOC: [facility] U#:[id number] AGE/SX: 83/M ROOM: RE10/02/[address]: Dr. Harjit Rolon MD : [id number] BED: DIS: 10/02/2024 SPEC #: [id number] RECD: 10/02/24 13:45 STATUS: PAUL REQ #: [id number] LILIAN: 10/02/24 12:[address]: Harjit Rolon DEPT: SURGICAL PATHOLOGY RECD BY: Nicholas Alba ENTERED: 10/02/24 13:46 SP TYPE: Lesion OTHR DR: Dr. 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 TISSUE SUBMITTED: A- Left ear canal basal cell carcinoma *long stitch lateral , short stitch posterior*, B- Left ear canal basal cell carcinoma - posterior margin, C- Left ear canal basal carcinoma - inferior margin,3 D- Left ear canal basal cell carcinoma - anterior margin, E- Left ear canal basal cell carcinoma- superior margin, F- Left ear canal basal cell carcinoma - deep margin, G- Left ear canal basal cell carcinoma - superior margin, H- Left ear canal basal cell carcinoma - posterior margin, I- Left ear canal basal cell carcinoma - inferior margin, J- Left ear canal basal cell carcinoma -posterior margin (3), K- Left ear canal basal cell carcinoma - superior margin (3), L- Left ear canal basal cell carcinoma - posterior margin (4) FROZEN SECTION DIAGNOSIS A. Left ear canal mass, excisional biopsy: Basal cell carcinoma, extending to all margins. B. Left ear lesion, posterior margin: Positive for carcinoma. C. Left ear lesion, inferior margin: Suspicious for carcinoma. D. Left ear lesion, anterior margin: Negative for carcinoma. E. Left ear lesion, superior margin: Positive for carcinoma. F. Left ear lesion, deep margin: Negative for carcinoma. G. Left ear lesion, superior margin: Positive for carcinoma. H. Left ear lesion, posterior margin: Positive for carcinoma. I. Left ear lesion, inferior margin: Negative for carcinoma. J. Left ear lesion, posterior margin: Positive for carcinoma. K. Left ear lesion, superior margin: Negative for carcinoma. L. Left ear lesion, posterior margin (4): Positive for basal cell carcinoma. 10/02/2024 MICROSCOPIC DIAGNOSIS A. Left ear canal mass, excision: Basal cell carcinoma, incompletely excised. Solar elastosis. See comment. B. Left ear lesion, posterior margin: Positive for carcinoma. C. Left ear lesion, inferior margin: Positive for carcinoma. D. Left ear lesion, anterior margin: Negative for carcinoma. Solar elastosis. E. Left ear lesion, superior margin: Positive for carcinoma. F. Left ear lesion, deep margin: A piece of cartilage, negative for carcinoma. G. Left ear lesion, superior margin: Positive for carcinoma. H. Left ear lesion, posterior margin: Positive for carcinoma. Solar elastosis. See comment. I. Left ear lesion, inferior margin: Focally positive for basal cell carcinoma at the deep margin. J. Left ear lesion, posterior margin (3): Positive for carcinoma. See comment. K. Left ear lesion, superior margin (3): Negative for carcinoma. L. Left ear lesion, posterior margin (4): Positive for carcinoma. See comment. 10/03/2024 COMMENT A. The tumor is at present all margins. Tumor also invades through the underlying cartilage. H, J, L. Underlying cartilage is also noted in the specimen and negative for carcinoma. Case has been reviewed in consultation with Dr. Gan who concurs with the above diagnosis. IDC:AM MICROSCOPIC DESCRIPTION Slides are reviewed. GROSS DESCRIPTION A. Received fresh for frozen section diagnosis labeled with the patient's name is a specimen designated Left ear canal basal cell carcinoma. The specimen consists of an irregular piece of skin with underlying tissue measuring 2.2 x 2.2 x 1.0cm. The specimen is oriented as follows: long-lateral, short-superior. This specimen is inked as follows: posterior margin - black, lateral margin - blue, inferior margin - green, medial margin - yellow, deep margin - red. The specimen is serially sectioned and submitted entirely for frozen section diagnosis in four cassettes. B. Received fresh for frozen section diagnosis labeled with the patient's name is a specimen designated Posterior margin. The specimen consists of a piece of logan-white skin measuring 0.5 x 0.2 x 0.1cm. The entire specimen is submitted for frozen section in one cassette. C. Received fresh for frozen section diagnosis labeled with the patient's name is a specimen designated Inferior margin. The specimen consists of a piece of logan-white skin measuring 0.2 x 0.2 x 0.1cm. The entire specimen is submitted for frozen section in one cassette. D. Received fresh for frozen section diagnosis labeled with the patient's name is a specimen designated Anterior margin. The specimen consists of a piece of logan-white skin measuring 1.1 x 0.2 x 0.2cm. The entire specimen is submitted for frozen section in one cassette. E. Received fresh for frozen section diagnosis labeled with the patient's name is a specimen designated Superior margin. The specimen consists of a piece of logan-white skin measuring 0.5 x 0.2 x 0.1cm. The entire specimen is submitted for frozen section in one cassette. F. Received fresh for frozen section diagnosis labeled with the patient's name is a specimen designated Deep margin. The specimen consists of a piece of logan indurated tissue measuring 0.5 x 0.3 x 0.2cm. The entire specimen is submitted in one cassette for frozen section diagnosis. G. Received fresh for frozen section diagnosis labeled with the patient's name is a specimen designated Superior margin. The specimen consists of a piece of skin with underlying tissue measuring 0.5 x 0.3 x 0.1cm. The entire specimen is submitted for frozen section diagnosis in one cassette. H. Received fresh for frozen section diagnosis labeled with the patient's name is a specimen designated Posterior margin. The specimen consists of an irregular piece of skin with underlying tissue measuring 2.0 x 1.0 x 0.2cm. The entire specimen is submitted for frozen section in one cassette. I. Received fresh for frozen section diagnosis labeled with the patient's name is a specimen designated Inferior margin. The specimen consists of a piece of skin with underlying tissue measuring 0.5 x 0.4 x 0.1cm. The entire specimen is submitted for frozen section diagnosis in one cassette. J. Received fresh for frozen section consultation/diagnosis labeled with the patient's name is a specimen designated Posterior margin. The specimen consists of a piece of skin with soft tissue measuring 1.0 x 1.0 x 0.2cm. The entire specimen is submitted for frozen section diagnosis in one cassette. K. Received fresh for frozen section consultation/diagnosis labeled with the patient's name is a specimen designated Superiror margin. The specimen consists of a piece of skin with soft tissue measuring 0.2 x 0.1 x 0.1cm. The entire specimen is submitted for frozen section diagnosis in one cassette. L. Received fresh for frozen section diagnosis labeled with the patient's name is a specimen designated Left ear canal-posterior margin . The specimen consists of a piece of skin and soft tissue measuring 1.6 x 0.6 x 0.2cm. The entire specimen is submitted in one cassette for frozen section diagnosis. 10/02/2024 TC:0 CPT:[id number]
[2024-10-02] MEDS: Lidocaine 1% /Epi 1:100 (20ml) 20 ML Vial (12:41)
[2024-10-02] MEDS: Mineral Oil, Light Sterile 10 ML Vial MC (13:18)
[2024-10-02] MEDS: BACITRACIN/POLYMYXIN B 15 GM Tube 1 APPLIC (13:19)
[2024-10-02] MEDS: Ciprofloxacin 0.3% 2.5ml Bottle 1 DRP ×2 (14:07→15:32)
--- NOTE | 2024-10-02 15:57 | PCM.POST.ANE ---
Anesthesia: Postop Eval I Current Vital Signs Temperature: 97.8 F Pulse Rate: 83 Blood Pressure: 128/62 Respiratory Rate: 18 Pulse Ox: 96 Assessment Airway patent: Yes Spontaneous unlabored respirations: Yes nausea: No Vomiting: No Anesthesia Complication: No Fluid Hydration Crystalloid volume administer (ml): 2,000 Total IV fluid infused: 2,000 Progress Note Anesthesia document: Postop Eval 1 completed: Yes
--- NOTE | 2024-10-02 17:16 | POSTOPAN2_ITS ---
Anesthesia Postop Eval I Sum Postop Eval Completion status Anesthesia document: Postop Eval 1 completed: Yes Anesthesia Postop Eval I Summary Anesthesia Postop Eval I Summary: Anesthesia Postop Eval I: Assessment Summary Airway patent Yes 10/02/24 15:57 [email or web address] [email or web address] Spontaneous unlabored Yes 10/02/24 15:57 [email or web address] respirations Mental status nausea No 10/02/24 15:57 [email or web address] Vomiting No 10/02/24 15:57 [email or web address] [email or web address] Anesthesia Postop Eval I: Fluid Summary Crystalloid volume administer 2,000 10/02/24 15:57 [email or web address] (ml) Colloids volume administered ( ml) Blood Product volume administered (ml) Total IV fluid infused 2,000 10/02/24 15:57 [email or web address] [email or web address] Anesthesia Postop Eval I: Summary Notes Anesthesia Complication No 10/02/24 15:57 [email or web address] Anesthesia Complication Comment: Post-operative progress note Anesthesia: Postop Eval II Evaluation Mental status: Awake Pain Level: 0 nausea: No Vomiting: No
--- NOTE | 2024-10-02 17:16 | PCM.POSTANE2 ---
Anesthesia Postop Eval I Sum Postop Eval Completion status Anesthesia document: Postop Eval 1 completed: Yes Anesthesia Postop Eval I Summary Anesthesia Postop Eval I Summary: Anesthesia Postop Eval I: Assessment Summary Airway patent Yes 10/02/24 15:57 [email or web address] Spontaneous unlabored Yes 10/02/24 15:57 [email or web address] respirations Mental status nausea No 10/02/24 15:57 [email or web address] Vomiting No 10/02/24 15:57 [email or web address] Anesthesia Postop Eval I: Fluid Summary Crystalloid volume administer 2,000 10/02/24 15:57 [email or web address] (ml) Colloids volume administered ( ml) Blood Product volume administered (ml) Total IV fluid infused 2,000 10/02/24 15:57 [email or web address] Anesthesia Postop Eval I: Summary Notes Anesthesia Complication No 10/02/24 15:57 [email or web address] Anesthesia Complication Comment: Post-operative progress note Anesthesia: Postop Eval II Evaluation Mental status: Awake Pain Level: 0 nausea: No Vomiting: No
== END 2024-10-02 17:29 | disposition home or self-care (01) ==
LOC: SDC 10:15 → AC 10:16
PROVIDERS: PCP Internal Medicine; Referring Provider Otolaryngology; Visit Provider Otolaryngology
PROC: (CPT 11646; principal; 2024-10-02 11:10)
DX: C44.219 Basal cell carcinoma of skin of left ear and external auricular canal (principal); Z79.899 Other long term (current) drug therapy
CPT/HCPCS: 11646; 15100; 00300; 88305; 88331; 88332; J2405

== ENCOUNTER 2025-01-04 18:55 | Emergency (ER) | payer MEDICARE, SELFPAY ==
[2025-01-04 18:56] VITALS: BP 123/89; PULSE 75; RESP 16; TEMP 36.4; O2SAT 100; BMI 23.6
--- NOTE | 2025-01-04 20:21 | EX.ED.UPPERE ---
HPI History of Present Illness HPI Narrative: Patient presents with laceration to his left ring finger that occurred today. Patient is right-hand dominant. Patient states he was using a knife to peel an apple when it slipped and he cut the tip of his finger. Patient states he applied pressure but the bleeding persisted. Patient denies any paresthesias or weakness. Patient denies any other injuries. Patient does states that his primary care physician except usually keeps his tetanus up-to-date. Patient denies any pain. Chief Complaint: Laceration Informant: patient Occured/Mechanism Comment: Accidentally cut with a knife Onset/Context/Timing Onset: Today Context: Sudden Onset Timing: Continuous Worsened by: Nothing Relieved by: Nothing Associated Symptoms Associated Symptoms: Negative for Parasthesia, Weakness or Loss of Funtion Narrative Tetanus Immunization: <5 years [facility] Medical History Basal cell carcinoma of left ear Wears hearing aid Wears glasses Cancer Thyroid disease High cholesterol History of stress test Encounter for colonoscopy following colon polyp removal Anemia Hay fever Home Medications ?Medication ?Instructions ?Recorded ?Last Taken ?Type ascorbic acid (vitamin C) 1,000 mg 1,000 mg PO DAILY 09/25/24 10/01/24 History tablet,extended release (C Complex) cholecalciferol (vitamin D3) 25 25 mcg PO DAILY 09/25/24 10/01/24 History mcg (1,000 unit) capsule (Vitamin D3) finasteride 5 mg tablet 5 mg PO DAILY 09/25/24 10/02/24 History levothyroxine 50 mcg tablet 50 mcg PO DAILY 09/25/24 10/02/24 History pravastatin 80 mg tablet 80 mg PO DAILY 09/25/24 10/02/24 History vitamin B complex (Complex B-100 1 tab PO DAILY 09/25/24 10/01/24 History tablet,extended release) Allergy/AdvReac Type Severity Reaction Status Date / Time Penicillins (PCN) Allergy Unknown UNKNOWN Verified 01/04/25 18:58 Surgical History S/P split thickness skin graft History of hernia surgery H/O removal of cyst Social History Smoking Status: Never smoker alcohol intake: former ROS ROS ED Constitutional Constitutional ED: Denies chills or fever(s) Eyes Eyes: Denies blurry vision or change in vision ENT ENT ED: Denies rhinorrhea or sore throat Cardiovascular Cardiovascular: Denies chest pain or palpitations Respiratory/Chest Respiratory/Chest: Denies cough or dyspnea Gastrointestinal Gastrointestinal: Denies nausea or vomiting Genitourinary Genitourinary ED: Denies dysuria or hematuria Musculoskeletal Musculoskeletal: Denies back pain or neck pain Integumentary Denies abscess or rash Neurologic Neurologic: Denies headache(s) or weakness Allergic/Immunologic Allergic/Immunologic ED: Denies mouth swelling or urticaria EXAM Physical Exam Const Vital Signs: 01/04/25 18:56 Temperature 97.6 F L Temperature Source Temporal Pulse Rate 75 Respiratory Rate 16 Blood Pressure 123/89 H Blood Pressure Mean 100 Pulse Ox 100 Oxygen Delivery Method Room Air Positive well nourished and well developed General Appearance ED: well developed and NAD HEENT Reports moist mucous membranes Neck full ROM and supple Extremity Extremity Narrative: There is a 1 cm full-thickness linear laceration over the tip of his left ring finger. There is mild gapping of the wound margins. There is moderate bleeding noted. There are no foreign bodies noted. Sensation was intact to light touch in all digits. Capillary refill was less than 2 seconds in all digits. Neuro oriented x3, CN's II-XII intact bilaterally, moves all extremities, no focal motor deficits and no sensory deficits noted Sensorium / Orientation: alert Motor Exam: strength 5/5 throughout Psych mental status grossly normal MDM MDM MDM Narrative Medical decision making narrative: The wound was cleaned and irrigated with copious amounts of normal saline. The wound was anesthetized with 1% plain lidocaine via digital block. The wound was closed with 2 simple interrupted #5-0 Ethilon sutures under sterile technique. Patient tolerated the procedure well. Bacitracin dressing was applied. Patient was instructed to keep the wound clean and dry. Patient was instructed to follow-up with his primary care physician in 7 days for wound recheck and suture removal. Patient understood and was agreeable with the plan. All questions were answered. Procedures Lacerations Left ring finger: Length: 1 cm Depth: Sub Q Shape: Linear Prep: Sterile Conditions and Chlorhexadine Laceration repair: Digital block, Irrigated, Lidocaine, Skin sutures and Wound explored Irrigated (ml): 60 Number of Sutures/Chivo: 2 Suture Information: Ethilon, Simple and 5-0 Discharge Plan Triage Chief Complaint: Laceration ED Provider: Alex Marshall Dx/Rx/DC Orders Clinical Impression: Laceration of left ring finger, Elevated blood pressure reading Instructions: ED Laceration, Hand: All Closures Prescriptions: No Action pravastatin 80 mg tablet 80 mg PO DAILY levothyroxine 50 mcg tablet 50 mcg PO DAILY finasteride 5 mg tablet 5 mg PO DAILY Complex B-100 Tablet Extended Release 1 tab PO DAILY C Complex 1,000 mg tablet extended release 1,000 mg PO DAILY cholecalciferol (vitamin D3) [Vitamin D3] 25 mcg (1,000 unit) capsule 25 mcg PO DAILY Primary Care Provider: Yahaira Nicholas Referrals: Yahaira Nicholas MD [Primary Care Provider] - 7 Days for suture removal Print Language: Gabonese Disposition Disposition: Home, Self Care
[2025-01-04] MEDS: Lidocaine 1% (20 ml mdv) 20 ML Vial INFILT (21:44)
== END 2025-01-04 21:52 | disposition home or self-care (01) ==
PROVIDERS: Emergency Provider Emergency Medicine; PCP Internal Medicine; Visit Provider Emergency Medicine
DX: S61.215A Laceration without foreign body of left ring finger without damage to nail, initial encounter (principal); R03.0 Elevated blood-pressure reading, without diagnosis of hypertension; X58.XXXA Exposure to other specified factors, initial encounter
CPT/HCPCS: 12001; 99283